=== PATIENT | female | born 1975 | race Caucasian/White ===

== ENCOUNTER → 2017-05-28 | Outpatient (CLI) | payer OTHER ==
[~2017-05-28] MED LIST: CETI10TA84 PO; LORA-741 PO; ZOLOFT PO
--- NOTE | 2017-06-01 07:38 | MAMMOGRAPHY REPORT ---
BILATERAL DIGITAL SCREENING MAMMOGRAM TOMOSYNTHESIS WITH CAD: 05/28/2017 CLINICAL HISTORY: Routine screening. Patient has no complaints. TECHNIQUE: Breast tomosynthesis in addition to standard 2D mammography was performed. Current study was also evaluated with a Computer Aided Detection (CAD) system. COMPARISON: Comparison is made to exams dated: 01/31/2016 mammogram, 04/15/2011 ultrasound, 1 mammogram - [facility], 07/15/2006, 07/15/2006, and 07/15/2006. BREAST COMPOSITION: The tissue of both breasts is heterogeneously dense, which may obscure small mas ses. FINDINGS: There is a focal asymmetry within the left upper outer quadrant, for which spot compressio n tomosynthesis views and possible breast ultrasound are recommended for further evaluation. The remainder of both breasts are stable compared to prior exams, without suspicious masses, calcific ations, or areas of architectural distortion noted. IMPRESSION: ACR BI-RADS CATEGORY 0: INCOMPLETE EVALUATION: NEED ADDITIONAL IMAGING EVALUATION Left upper outer quadrant asymmetry, for which additional imaging evaluation is recommended. The pat ient will be called to schedule an appointment. Approximately 10% of breast cancers are not detected with mammography. A negative mammographic report should not delay biopsy if a clinically suggestive mass is present. Lesa Thorpe M.D. /:05/28/2017 16:20:36 Exercise Rider: Brigid Marin, [facility] letter sent: Addl Imaging 0 BI-RADS Code: ACR BI-RADS Category 0: Incomplete Evaluation: Need Additional Imaging Evaluation
== END | disposition home or self-care (01) ==
LOC: C.MAMM 13:14
PROVIDERS: ATTEND Family Medicine
DX: Z12.31 Encounter for screening mammogram for malignant neoplasm of breast (principal); N64.89 Other specified disorders of breast

== ENCOUNTER → 2017-06-09 | Outpatient (CLI) | payer OTHER ==
--- NOTE | 2017-06-09 12:57 | MAMMOGRAPHY REPORT ---
UNILATERAL LEFT DIGITAL DIAGNOSTIC MAMMOGRAM TOMOSYNTHESIS AND TARGETED LEFT ULTRASOUND: 06/09/2017 CLINICAL HISTORY: 41-year-old woman called back from screening mammography for a focal asymmetry in t he upper outer posterior left breast. TECHNIQUE: Spot compression left CC and MLO tomosynthesis images were obtained. COMPARISON: Comparison is made to exams dated: 05/28/2017 mammogram, 01/31/2016 mammogram, 04/15/2011 u ltrasound, 04/15/2011 mammogram - [facility], 07/15/2006, and 07/15/2006. BREAST COMPOSITION: There are scattered areas of fibroglandular density in the left breast. FINDINGS: The spot compression tomosynthesis views of the left upper outer quadrant demonstrate a par tially circumscribed, multilobulated mass in the upper outer middle through posterior left breast katarzyna bonita a grouping of multiple partially circumscribed and obscured masses. There is no evidence of asso ciated speculation, architectural distortion or microcalcification. Further characterization with asmita zambrano was performed. Targeted ultrasound was performed in the left upper outer quadrant. Throughout the 1:00 radian there is a conglomerate of innumerable anechoic benign simple cysts. The dominant cyst is in the anterior 1:00 left breast approximate 3 cm from the nipple, measuring 12.1 x 8.5 mm, but in radial dimension, this grouping of cysts measures at least 4 cm. No suspicious solid mass is identified. This conglo meration of cysts explains the focal mammographic asymmetry and is benign. No further workup is need ed at this time. IMPRESSION: ACR BI-RADS CATEGORY 2: BENIGN, TARGETED ULTRASOUND ACR BI-RADS CATEGORY 2: BENIGN The focal asymmetry in the left upper outer middle to posterior breast corresponds with a conglomerat e of innumerable anechoic benign simple cysts on ultrasound, throughout the 1:00 axis. There is no m ammographic or targeted sonographic evidence of malignancy in the left breast. Recommend return to a nnual screening mammography schedule. These results and recommendations were discussed with the patient at the time of the exam. Approximately 10% of breast cancers are not detected with mammography. A negative mammographic report should not delay biopsy if a clinically suggestive mass is present. Bria Rubio M.D. ay/:06/09/2017 12:32:33 Manager Merchandising: Brigid Marin, [facility] letter sent: Normal / BI-RADS Code: ACR BI-RADS Category 2: Benign Ultrasound BI-RADS: ACR BI-RADS Category 2: Benign
== END | disposition home or self-care (01) ==
LOC: C.MAMM 10:12
PROVIDERS: ATTEND Family Medicine
DX: N64.89 Other specified disorders of breast (principal); N60.02 Solitary cyst of left breast

== ENCOUNTER → 2017-07-14 | Outpatient (CLI) | payer OTHER ==
[2017-07-14 10:12] LABS: BASO % 1.1 %; BASO ABS # 0.04 K/uL (0-0.2); EOS % 1.1 %; EOS ABS # 0.04 K/uL (0-0.5); HEMATOCRIT 42.3 % (37-47); HEMOGLOBIN 14.1 g/dL (12.0-16.0); IG# 0.01 K/uL (0.00-0.02); LYMPH ABS # 1.66 K/uL (1.2-3.4); MEAN CELL VOLUME 93.4 fL (80-100); MEAN CORPUSCULAR HEMOGLOBIN 31.1 pg (25-34); MEAN CORPUSCULAR HGB CONC 33.3 g/dl (32-36); MEAN PLATELET VOLUME 10.3 fL (7.4-10.4); MONO % 8.1 %; NEUT % 44.4 %; NEUT ABS # 1.64 K/uL (1.4-6.5); PLATELET COUNT 258 K/uL (130-400); RED CELL DISTRIBUTION WIDTH CV 13.9 % (11.5-14.5); RED CELL DISTRIBUTION WIDTH SD 47.8 fL (36.4-46.3); WHITE BLOOD COUNT 3.69 K/uL (4.8-10.8)
[2017-07-14 10:50] LABS: ALT/SGPT 35 U/L (12-78); AST/SGOT 25 U/L (15-37); BLOOD UREA NITROGEN 13 mg/dl (7-18); CALCIUM 8.8 mg/dl (8.5-10.1); CARBON DIOXIDE 28 mmol/L (21-32); CHOLESTEROL 186 mg/dl (0-200); CREATININE 0.87 mg/dl (0.60-1.20); GLUCOSE 73 mg/dl (70-99); POTASSIUM 4.4 mmol/L (3.5-5.1); SODIUM 137 mmol/L (136-145)
[2017-07-14 10:59] LABS: ALKALINE PHOSPHATASE 61 U/L (45-117); LDL CHOLESTEROL CALCULATED 117 mg/dl; TOTAL PROTEIN 7.9 gm/dl (6.4-8.2)
[2017-07-15 13:50] LABS: ANA SCREEN TC 249X NEGATIVE (NEGATIVE)
== END | disposition home or self-care (01) ==
LOC: C.LAB 09:07
PROVIDERS: ATTEND Nurse Practitioner Family
DX: Z13.220 Encounter for screening for lipoid disorders (principal); M79.601 Pain in right arm; M79.602 Pain in left arm